=== PATIENT | female | born 1995 | race Caucasian/White ===

== ENCOUNTER → 2018-04-10 | Outpatient (CLI) | payer MEDICAID ==
[2013-01-18 22:31] VITALS: BP 113/60
[2018-04-10 17:19] LABS: EOS # 0.1 (0.04-0.40); EOS % 0.8 % (1.0-5.0); HEMOGLOBIN 13.3 g/dL (12.5-16.0); LYMPH# 3.2 (1.50-4.00); MEAN CELL VOLUME 91 fl (78-100); MEAN CORPUSCULAR HEMOGLOBIN 30 pg (27-31); MEAN CORPUSCULAR HGB CONC 33 g/dL (33-37); MEAN PLATELET VOLUME 10.9 fl (7.4-10.4); MONO # 0.8 (0.20-0.80); NEU # 3.7 (1.40-6.50); PLATELET COUNT 278 K/mm3 (130-400); RED BLOOD COUNT 4.39 M/mm3 (4.10-5.30); RED CELL DISTRIBUTION WIDTH 13.4 % (11.5-14.5); WHITE BLOOD COUNT 7.7 K/mm3 (4.8-10.8)
[2018-04-10 21:20] LABS: ALBUMIN 4.4 g/dL (3.5-5.0); CALCIUM 9.9 mg/dL (8.4-10.2); POTASSIUM 4.3 mmol/L (3.6-5.0); TOTAL BILIRUBIN 0.4 mg/dL (0.2-1.3); TOTAL PROTEIN 7.6 g/dL (6.3-8.2)
== END ==
LOC: LAB 16:14
PROVIDERS: Family Medicine
DX: R53.83 Other fatigue (principal); G62.9 Polyneuropathy, unspecified; F41.9 Anxiety disorder, unspecified

== ENCOUNTER → 2018-11-23 | Outpatient (CLI) | payer MEDICAID ==
[2013-01-18 22:31] VITALS: BP 113/60
[2018-11-23 17:25] LABS: EOS % 0.4 % (1.0-5.0); HEMATOCRIT 39.8 % (37.0-47.0); HEMOGLOBIN 13.2 g/dL (12.5-16.0); LYMPH# 2.7 (1.50-4.00); MEAN CELL VOLUME 91 fl (78-100); MEAN CORPUSCULAR HEMOGLOBIN 30 pg (27-31); MEAN CORPUSCULAR HGB CONC 33 g/dL (33-37); MEAN PLATELET VOLUME 10.5 fl (7.4-10.4); MONO # 0.6 (0.20-0.80); NEU # 3.6 (1.40-6.50); PLATELET COUNT 237 K/mm3 (130-400); RED BLOOD COUNT 4.39 M/mm3 (4.10-5.30); RED CELL DISTRIBUTION WIDTH 13.5 % (11.5-14.5); WHITE BLOOD COUNT 6.9 K/mm3 (4.8-10.8)
[2018-11-23 17:28] LABS: POTASSIUM 3.7 mmol/L (3.5-5.1)
[2018-11-23 17:29] LABS: CALCIUM 9.4 mg/dL (8.3-10.5)
[2018-11-23 17:31] LABS: TOTAL PROTEIN 7.5 g/dL (6.4-8.3)
[2018-11-23 17:32] LABS: TOTAL BILIRUBIN 0.4 mg/dL (0.2-1.2)
[2018-11-23 18:17] LABS: URINE APPEARANCE CLEAR; URINE BILIRUBIN NEGATIVE (NEGATIVE); URINE BLOOD NEGATIVE (NEGATIVE); URINE COLOR YELLOW; URINE GLUCOSE NEGATIVE (NEGATIVE); URINE KETONE NEGATIVE (NEGATIVE); URINE LEUKOCYTE ESTERASE NEGATIVE (NEGATIVE); URINE NITRATE NEGATIVE (NEGATIVE); URINE PROTEIN(semi-quant) NEGATIVE (NEGATIVE); URINE UROBILINOGEN NORMAL (NORMAL)
[2018-11-23 18:18] LABS: URINE WBC 0-1 /hpf (0-3)
== END ==
LOC: LAB 16:53
PROVIDERS: Nurse Practitioner
DX: R10.2 Pelvic and perineal pain (principal); R35.0 Frequency of micturition

== ENCOUNTER → 2018-11-24 | Outpatient (CLI) | payer MEDICAID ==
[2013-01-18 22:31] VITALS: BP 113/60
== END ==
LOC: LAB 17:07
DX: N91.2 Amenorrhea, unspecified (principal); R10.2 Pelvic and perineal pain

== ENCOUNTER → 2019-02-18 | Outpatient (CLI) | payer MEDICAID ==
[2013-01-18 22:31] VITALS: BP 113/60
== END ==
LOC: RAD 10:44
DX: N92.1 Excessive and frequent menstruation with irregular cycle (principal)

== ENCOUNTER → 2019-02-24 | Outpatient (CLI) | payer MEDICAID ==
[2013-01-18 22:31] VITALS: BP 113/60
== END ==
LOC: RAD 10:47
DX: M41.85 Other forms of scoliosis, thoracolumbar region (principal)

== ENCOUNTER → 2019-11-25 | Outpatient (CLI) | payer MEDICAID ==
[2013-01-18 22:31] VITALS: BP 113/60
[2019-11-29 16:56] LABS: AFFIRM VAGINITIS PANEL RESULTS AMS
[2019-11-29 17:08] LABS: HERPES SIMPLEX VIRUS 2 PCR FLD NEG; HERPES SIMPLEX VIRUS PCR-SRC RESP.FLD
== END ==
LOC: LAB 15:08
PROVIDERS: Nurse Practitioner
DX: R10.2 Pelvic and perineal pain (principal)

== ENCOUNTER → 2019-12-06 | Outpatient (CLI) | payer MEDICAID ==
[2013-01-18 22:31] VITALS: BP 113/60
[2019-12-06 18:25] LABS: EOS # 0.1 (0.04-0.40); EOS % 0.9 % (1.0-5.0); HEMOGLOBIN 13.3 g/dL (12.5-16.0); LYMPH# 2.9 (1.50-4.00); MEAN CELL VOLUME 90 fl (78-100); MEAN CORPUSCULAR HEMOGLOBIN 30 pg (27-31); MEAN CORPUSCULAR HGB CONC 33 g/dL (33-37); MEAN PLATELET VOLUME 9.8 fl (7.4-10.4); MONO # 0.9 (0.20-0.80); NEU # 4.8 (1.40-6.50); PLATELET COUNT 301 K/mm3 (130-400); RED BLOOD COUNT 4.46 M/mm3 (4.10-5.30); RED CELL DISTRIBUTION WIDTH 13.2 % (11.5-14.5); WHITE BLOOD COUNT 8.7 K/mm3 (4.8-10.8)
[2019-12-06 18:45] LABS: ALBUMIN 4.3 g/dL (3.5-5.0)
[2019-12-06 18:46] LABS: CALCIUM 9.3 mg/dL (8.3-10.5)
[2019-12-06 18:49] LABS: TOTAL BILIRUBIN 0.4 mg/dL (0.2-1.2)
== END ==
LOC: LAB 18:09
PROVIDERS: Nurse Practitioner
DX: N64.4 Mastodynia (principal)

== ENCOUNTER 2020-01-05 14:10 | Emergency (ER) | payer MEDICAID ==
[~2020-01-05] VITALS: Ht 152.4 cm; Wt 62.5 kg
[2020-01-05] MEDS ORDERED: GOOD NEIGHBOR325 MG PO (14:44)
[2020-01-05] MEDS ORDERED: MIXED AMPHETAMI15 M1 PO (14:44)
[2020-01-05 15:10] LABS: EOS % 0.3 % (1.0-5.0); HEMATOCRIT 36.4 % (37.0-47.0); HEMOGLOBIN 12.2 g/dL (12.5-16.0); LYMPH# 2.2 (1.50-4.00); MEAN CELL VOLUME 90 fl (78-100); MEAN CORPUSCULAR HEMOGLOBIN 30 pg (27-31); MEAN CORPUSCULAR HGB CONC 34 g/dL (33-37); MONO # 0.6 (0.20-0.80); NEU # 3.3 (1.40-6.50); PLATELET COUNT 214 K/mm3 (130-400); RED BLOOD COUNT 4.04 M/mm3 (4.10-5.30); RED CELL DISTRIBUTION WIDTH 13.2 % (11.5-14.5); WHITE BLOOD COUNT 6.1 K/mm3 (4.8-10.8)
[2020-01-05 15:19] LABS: ALBUMIN 3.9 g/dL (3.5-5.0); POTASSIUM 3.9 mmol/L (3.5-5.1)
[2020-01-05 15:20] LABS: CALCIUM 8.9 mg/dL (8.3-10.5)
[2020-01-05 15:23] LABS: TOTAL BILIRUBIN 0.3 mg/dL (0.2-1.2)
[2020-01-05 15:24] LABS: URINE APPEARANCE CLEAR; URINE BILIRUBIN NEGATIVE (NEGATIVE); URINE BLOOD NEGATIVE (NEGATIVE); URINE COLOR YELLOW; URINE GLUCOSE NEGATIVE (NEGATIVE); URINE KETONE NEGATIVE (NEGATIVE); URINE LEUKOCYTE ESTERASE NEGATIVE (NEGATIVE); URINE NITRATE NEGATIVE (NEGATIVE); URINE PROTEIN(semi-quant) TRACE mg/dL (NEGATIVE); URINE UROBILINOGEN NORMAL (NORMAL); URINE WBC 0-1 /hpf (0-3)
[2020-01-05 17:40] VITALS: BP 123/86
== END 2020-01-05 17:40 | disposition home or self-care (01) ==
LOC: ED 14:10
PROVIDERS: Physician Assistant
DX: F41.9 Anxiety disorder, unspecified (principal); F90.9 Attention-deficit hyperactivity disorder, unspecified type; Z86.73 Personal history of transient ischemic attack (TIA), and cerebral infarction without residual deficits; Z79.82 Long term (current) use of aspirin

== ENCOUNTER → 2020-01-06 | Outpatient (CLI) | payer MEDICAID ==
[2020-01-05 17:40] VITALS: BP 123/86
[~2020-01-06] MED LIST: GOOD NEIGHBOR325 MG PO; MIXED AMPHETAMI15 M1 PO
== END ==
LOC: LAB 14:23
DX: F41.9 Anxiety disorder, unspecified (principal)

== ENCOUNTER → 2020-02-24 | Outpatient (CLI) | payer MEDICAID | LOC: RAD 08:56 | DX: F79 Unspecified intellectual disabilities (principal); Z86.73 Personal history of transient ischemic attack (TIA), and cerebral infarction without residual deficits ==

== ENCOUNTER → 2020-08-14 | Outpatient (CLI) | payer MEDICAID ==
[~2020-08-14] MED LIST changes: +DEXTROAMPH SACC10 M1 PO; +LAMICTAL 25MG T25 MG PO
== END ==
LOC: RAD 09:27 → LAB 09:27
DX: M41.86 Other forms of scoliosis, lumbar region (principal); M41.84 Other forms of scoliosis, thoracic region; G89.29 Other chronic pain

== ENCOUNTER 2021-01-01 18:06 | Emergency (ER) | payer MEDICAID ==
[~2021-01-01] VITALS: Ht 149.9 cm; Wt 56.8 kg
[~2021-01-01 18:06] MED LIST changes: -DEXTROAMPH SACC10 M1 PO; -LAMICTAL 25MG T25 MG PO
[2021-01-01] MEDS ORDERED: DEXTROAMPH SACC10 M1 PO (18:47)
[2021-01-01] MEDS ORDERED: LAMICTAL 25MG T25 MG PO (18:49)
[2021-01-01 19:18] LABS: BASO # 0.02 (0.02-0.10); EOS # 0.04 (0.04-0.40); EOS % 0.6 % (1.0-5.0); HEMATOCRIT 38.9 % (37.0-47.0); LYMPH# 2.51 (1.50-4.00); MEAN CELL VOLUME 91 fl (78-100); MEAN CORPUSCULAR HEMOGLOBIN 30 pg (27-31); MEAN CORPUSCULAR HGB CONC 33 g/dL (33-37); MEAN PLATELET VOLUME 9.7 fl (7.4-10.4); PLATELET COUNT 264 K/mm3 (130-400); RED BLOOD COUNT 4.27 M/mm3 (4.10-5.30); WHITE BLOOD COUNT 6.8 K/mm3 (4.8-10.8)
[2021-01-01 19:27] LABS: ALBUMIN 4.1 g/dL (3.5-5.0)
[2021-01-01 19:28] LABS: POTASSIUM 4.2 mmol/L (3.5-5.1)
[2021-01-01 19:29] LABS: CALCIUM 9.5 mg/dL (8.3-10.5)
[2021-01-01 19:30] LABS: TOTAL PROTEIN 7.1 g/dL (6.4-8.3)
[2021-01-01 19:32] LABS: TOTAL BILIRUBIN 0.4 mg/dL (0.2-1.2)
[2021-01-01 20:18] LABS: URINE APPEARANCE HAZY; URINE BILIRUBIN NEGATIVE (NEGATIVE); URINE BLOOD NEGATIVE (NEGATIVE); URINE COLOR YELLOW; URINE GLUCOSE NEGATIVE (NEGATIVE); URINE KETONE TRACE (NEGATIVE); URINE LEUKOCYTE ESTERASE NEGATIVE (NEGATIVE); URINE NITRATE NEGATIVE (NEGATIVE); URINE PROTEIN(semi-quant) NEGATIVE (NEGATIVE); URINE UROBILINOGEN NORMAL (NORMAL); URINE WBC 0-1 /hpf (0-3)
[2021-01-01 20:19] LABS: URINE MUCUS PRESENT (NOT PRESENT)
[2021-01-01 20:37] VITALS: BP 134/77
== END 2021-01-01 20:37 | disposition home or self-care (01) ==
LOC: ED 18:06
PROVIDERS: Nurse Practitioner
DX: F41.9 Anxiety disorder, unspecified (principal); G47.00 Insomnia, unspecified; G40.909 Epilepsy, unspecified, not intractable, without status epilepticus; Z86.73 Personal history of transient ischemic attack (TIA), and cerebral infarction without residual deficits; Z20.822 Contact with and (suspected) exposure to COVID-19

== ENCOUNTER → 2021-01-03 | Outpatient (CLI) | payer MEDICAID ==
[~2021-01-03] MED LIST changes: +DEXTROAMPH SACC10 M1 PO; +LAMICTAL 25MG T25 MG PO
[2021-01-04 04:21] LABS: LAMOTRIGINE, SERUM 6.04 ug/mL (())
== END ==
LOC: LAB 11:08
PROVIDERS: Nurse Practitioner
DX: Z51.81 Encounter for therapeutic drug level monitoring (principal)

== ENCOUNTER → 2022-04-18 | Outpatient (CLI) | payer MEDICAID ==
[2022-04-18 10:57] LABS: BASO # 0.02 K/mm3 (0.02-0.10); EOS # 0.03 K/mm3 (0.04-0.40); EOS % 0.3 % (1.0-5.0); HEMATOCRIT 44.2 % (37.0-47.0); HEMOGLOBIN 14.8 g/dL (12.5-16.0); LYMPH# 1.29 K/mm3 (1.50-4.00); MEAN CELL VOLUME 91 fl (78-100); MEAN CORPUSCULAR HEMOGLOBIN 31 pg (27-31); MEAN CORPUSCULAR HGB CONC 34 g/dL (33-37); MEAN PLATELET VOLUME 9.2 fl (7.4-10.4); MONO # 1.05 K/mm3 (0.20-0.80); NEU # 9.49 K/mm3 (1.40-6.50); PLATELET COUNT 277 K/mm3 (130-400); RED BLOOD COUNT 4.84 M/mm3 (4.10-5.30); RED CELL DISTRIBUTION WIDTH 12.9 % (11.5-14.5); WHITE BLOOD COUNT 11.9 K/mm3 (4.8-10.8)
[2022-04-18 11:03] LABS: ALBUMIN 4.3 g/dL (3.5-5.0); POTASSIUM 3.8 mmol/L (3.5-5.1)
[2022-04-18 11:04] LABS: CALCIUM 9.2 mg/dL (8.3-10.5)
[2022-04-18 11:05] LABS: TOTAL PROTEIN 7.4 g/dL (6.4-8.3)
[2022-04-18 11:07] LABS: TOTAL BILIRUBIN 0.4 mg/dL (0.2-1.2)
== END ==
LOC: LAB 10:14
PROVIDERS: Nurse Practitioner
DX: H53.9 Unspecified visual disturbance (principal)

== ENCOUNTER → 2023-01-15 | Outpatient (CLI) | payer MEDICAID | LOC: LAB 11:49 | DX: R56.9 Unspecified convulsions (principal); F90.9 Attention-deficit hyperactivity disorder, unspecified type; F41.9 Anxiety disorder, unspecified; F32.9 Major depressive disorder, single episode, unspecified; R53.83 Other fatigue; G47.09 Other insomnia ==

== ENCOUNTER → 2023-03-10 | Outpatient (CLI) | payer MEDICAID ==
[2023-03-10 14:34] LABS: HEMATOCRIT 42.1 % (37.0-47.0); HEMOGLOBIN 13.7 g/dL (12.5-16.0); MEAN PLATELET VOLUME 9.7 fl (7.4-10.4); RED BLOOD COUNT 4.43 M/mm3 (4.10-5.30); WHITE BLOOD COUNT 7.8 K/mm3 (4.8-10.8)
[2023-03-10 14:42] LABS: ALBUMIN 4.1 g/dL (3.5-5.0)
[2023-03-10 14:44] LABS: CALCIUM 9.1 mg/dL (8.3-10.5)
[2023-03-10 14:45] LABS: TOTAL PROTEIN 7.4 g/dL (6.4-8.3)
[2023-03-10 14:47] LABS: TOTAL BILIRUBIN 0.3 mg/dL (0.2-1.2)
== END ==
LOC: LAB 14:20
PROVIDERS: Nurse Practitioner Family
DX: R19.5 Other fecal abnormalities (principal); R10.9 Unspecified abdominal pain; R11.0 Nausea